=== PATIENT | female | born 1940 | race Caucasian/White ===

== ENCOUNTER 2017-02-07 13:55 | Inpatient (IN) | payer MEDICARE ==
[2017-02-07] MEDS ORDERED: Morphine 4 MG/ML VIAL ONE (15:29)
--- NOTE | 2017-02-07 15:31 | CT ---
CT BRAIN NONCONTRAST: HISTORY: 76-year-old female status post acute head trauma from fall. FINDINGS: There is no midline shift or any other mass effect. There is no evidence of acute intracranial hemor rhage, large cortical infarct, obstructive hydrocephalus, or extraaxial fluid collection. The calvar ium is intact. IMPRESSION: No acute intracranial findings. jerzy POS: HONEY
--- NOTE | 2017-02-07 15:36 | RAD ---
AP RADIOGRAPH OF THE PELVIS: DATE: 02/07/17. HISTORY: Trauma. Intense pain with rotation of upper portion of right lower extremity. Abrasion to right elb ow. Symptoms occurred post fall. COMPARISON: None available. FINDINGS: Mild degenerative changes are seen in the spine and involving the sacroiliac joints bilaterally. The re is symmetric but minimal bilateral hip osteoarthritis. There is a nondisplaced right intertrochan teric hip fracture. No additional fracture is seen, and there is no dislocation. Degenerative hernandez es are seen in the pubic symphysis. Surgical clips are seen inferior to the pelvis. IMPRESSION: Nondisplaced intertrochanteric right hip fracture. POS: VALERIE
--- NOTE | 2017-02-07 15:37 | RAD ---
TWO VIEWS OF THE RIGHT FEMUR: 02/07/17 HISTORY: Intense pain and rotation upper right lower extremity after a fall. FINDINGS: There is a nondisplaced intertrochanteric right hip fracture. No additional fracture seen. There is n o dislocation. Right total hip prosthesis is present. Surgical clips are seen at the medial aspect of the right thigh with vascular calcification in the region of the superficial femoral artery. IMPRESSION: Nondisplaced intertrochanteric right hip fracture. POS: VALERIE
--- NOTE | 2017-02-07 15:37 | RAD ---
TWO VIEWS RIGHT HIP: Date: 02-07-17 History: Patient fell, intense pain with rotation of upper portion right lower extremity. Abrasion ri ght elbow. FINDINGS: There is a nondisplaced intertrochanteric right hip fracture. There is no evidence of a dislocation. Surgical clips are seen in at the medial aspect of each thigh. Degenerative changes seen at the pubic symphysis. IMPRESSION: Nondisplaced intertrochanteric right hip fracture. POS: VALERIE
[2017-02-07 16:03] LABS: #Lymphocytes 1.3 thou/uL (1.20-3.40); #Monocytes 0.5 thou/uL (0.11-0.59); #Neutrophils 9.4 thou/uL (1.40-6.50); %Basophils 0.1 % (0.0-1.0); %Eosinophils 0.3 % (0.0-10.0); %Lymphocytes 11.4 % (21.0-51.0); %Monocytes 4.6 % (0.0-10.0); Hematocrit 42.5 % (36.0-47.0); Mean Platelet Volume 8.1 fL (7.4-10.4); Red Blood Cell (RBC) Count 4.87 mill/uL (4.20-5.40); White Blood Cell (WBC) Count 11.3 thou/uL (4.8-10.8)
[2017-02-07 16:10] LABS: Prothrombin Time 14.5 SEC (12.0-14.7)
[2017-02-07 16:11] LABS: PTT 30.2 SEC (22.9-36.1)
[2017-02-07 16:20] LABS: ALT (SGPT) 16 U/L (8-55); AST (SGOT) 21 U/L (5-34); Alkaline Phosphatase 103 U/L (40-150); Anion Gap 11 mmol/L (10-20); BUN (Urea Nitrogen) 16 mg/dL (9.8-20.1); Bilirubin, Total 0.6 mg/dL (0.2-1.2); Calc. Creatinine Clearance 0 mL/min (70-130); Carbon Dioxide 26 mmol/L (23-31); Chloride 102 mmol/L (98-107); Estimated GFR-MDRD 65; Globulin 3.1 g/dL (2.4-3.5); Protein, Total 6.7 g/dL (6.0-8.3)
--- NOTE | 2017-02-07 16:41 | RAD ---
RADIOGRAPH CHEST 1 VIEW: 02/07/17 HISTORY: 76-year-old female for preoperative clearance. FINDINGS: There are no air space densities, pulmonary edema, pneumothorax, or cardiomegaly. The lateral costop hrenic angles are sharp. There are sternotomy wires. There is no interval change since 05/28/15. IMPRESSION: 1. No acute cardiopulmonary findings. 2. Signs of previous open heart surgery. jerzy [] POS: Jarod
[2017-02-07 17:03] LABS: Bilirubin Negative (Negative); Blood, Urine Negative (Negative); Glucose, Urine (Dipstick) >=1000 mg/dL (Negative); Ketone, Urine Trace mg/dL (Negative); Nitrite Negative (Negative); Protein, Urine (Dipstick) Negative (Neg-Trace); Urobilinogen 0.2 mg/dL (0.2-1.0)
[2017-02-07] MEDS ORDERED: Ondansetron HCl/PF 4 MG/2 ML Vial IVP PRN (17:27)
[2017-02-07] MEDS ORDERED: Dextrose 50% Abboject 50 ML SYRINGE SLOW IVP PRN ×2 (17:27→20:58)
[2017-02-07] MEDS ORDERED: Dextrose 5% in Water 1,000 ML IV PRN ×2 (17:27→20:58)
[2017-02-07] MEDS ORDERED: hydrALAZINE 20 MG/ML VIAL SLOW IVP PRN (17:27)
[2017-02-07 17:51] VITALS: BMI 31.1
--- NOTE | 2017-02-07 18:28 | PRG ---
DATE OF SERVICE: 02/07/2017 The patient was seen by Faith Hernandez. Please see her H&P for details. Briefly this is a 76-year-old female who presents for hip fracture, admitted to the Trauma Service. The patient is hemodynamically and neurologically stable. Her head CT was negative. Her chest film s hows no obvious hemothorax, pneumothorax or infiltrates. Her lower extremity films reveal a right in tertrochanteric fracture. The patient is comfortable and her pain is controlled. ASSESSMENT: Right intertrochanteric hip fracture. PLAN: Dr. Gunter to see for repair of that. Trauma Service will follow.
[2017-02-07] MEDS: Morphine 4 MG/ML VIAL SLOW IVP PRN (20:13)
[2017-02-07] MEDS: Famotidine/PF 20 mg/2ml Vial SLOW IVP SCH (20:13)
[2017-02-07] MEDS ORDERED: CEFAZOLIN/Water 2 GM/20 ML SYRINGE SLOW IVP SCH (20:45)
[2017-02-07] MEDS: HumaLOG 300 UNITS/3 ML VIAL SC PRN (21:34)
--- NOTE | 2017-02-07 21:53 | HP ---
ATTENDING PHYSICIAN: Jaxson Farmer M.D. HISTORY OF PRESENT ILLNESS: A 76-year-old female presented to [facility] ED after a fall that occurred at 9:30 this morning. She was apparently trying to step over a space heater when her feet got tangled up and she fell to the ground , landing on her right knee and right upper leg. She was unable to get herself up into a seated position and called her grandson. They were unable to get her picked up into a chair without excruciating pain. EMS was summoned and she was transported to [facility]. She remained hemodynamically stable and neurologically intact en route. She complained of pain that is mostly in her right upper thigh and right hip area. Pain is dull in nature and aching. Symptoms are improved with administration of morphine. Pain is exacerbated by movement. Workup in the ED identified a right nondisplaced intertrochanteric hip fracture. Dr. Gunter, Orthopedics, was consulted by Dr. Fuentes in the ED. Trauma services has been consulted for admission and management. PAST MEDICAL HISTORY: Includes gastroesophageal reflux disease, coronary artery disease, diabetes mellitus, and hyperlipidemia. PAST SURGICAL HISTORY: Coronary artery bypass graft x3, right knee surgery, carpal tunnel release. SOCIAL HISTORY: Patient drinks socially rarely. The patient reports smoking cigarettes and quit in approximately 2014. She denies drug use. HOME MEDICATIONS: Aspirin 81mg daily, Metoprolol 50 mg daily, Simvastatin 40mg QHS, Losartan 50mg daily, Metformin 1000mg BID. REVIEW OF SYSTEMS: Constitutional: The patient denies chills, fever, weakness. HEENT: Patient denies complaint. Cardiovascular: Patient denies chest pain or palpitations. Pulmonary: The patient denies cough, shortness of breath. Gastrointestinal: The patient denies abdominal pain, nausea, vomiting or diarrhea. Musculoskeletal: The patient reports pain in the right upper thigh and right hip area. Integumentary: The patient denies complaints. Neurologic: Patient denies focal weakness or sensory issues. PHYSICAL EXAMINATION: VITAL SIGNS: Blood pressure 153/73, pulse 65, respirations 18, temperature 98.4 oral, O2 sat 96% on room air. HEENT: Atraumatic, normocephalic, trachea midline. No JVD. CARDIOVASCULAR: Regular rate and rhythm. Heart sounds normal. PULMONARY: Breath sounds clear bilaterally. No respiratory distress. ABDOMEN: Nontender, nondistended. EXTREMITIES: Moves all extremities. Cap refill brisk. Neurovascularly intact. Pain with palpation of the right upper femur, right hip area. NEUROLOGIC: GCS 15, awake, alert, oriented x3. PSYCHIATRIC: Normal mood and affect. ASSESSMENT: 1. A 76-year-old female status post ground level fall. 2. Nondisplaced intertrochanteric right hip fracture. PLAN: 1. Admit to hospital surgical floor. 2. Dr. Gunter, Orthopedics, consulted by TAMIKA Cunningham 3. Clear liquid diet tonight and n.p.o. after midnight. 4. IV fluids after midnight. 5. IV analgesia. 6. No chemical deep venous thrombosis prophylaxis. Place sequential compression devices. 7. Bed rest until cleared by orthopedics. Assessment, diagnostic imaging, plan of care were discussed with the patient and family. The patient understands and agrees with plan of care. History, review of system, assessment and plan were reviewed with attending trauma surgeon. HOLLIS
[2017-02-08] MEDS: HumaLOG 300 UNITS/3 ML VIAL SC PRN ×5 (00:20→20:56)
--- NOTE | 2017-02-08 01:58 | HP ---
PRINCIPAL DIAGNOSIS: Right intertrochanteric hip fracture. HISTORY OF PRESENT ILLNESS: This is a very pleasant woman who fell in her own home. She tripped ove r a space here. She denies injuries to her neck, nausea, vomiting, loss of consciousness. PAST MEDICAL HISTORY: Significant for hypertension, high cholesterol, and diabetes. ALLERGIES TO MEDICATIONS: None. SOCIAL HISTORY: Does not smoke or drink. She has a good family support system. FAMILY HISTORY: Negative for significant disease related to hip fractures. PHYSICAL EXAMINATION: GENERAL: Shows a pleasant woman who is in no distress. HEENT: Normocephalic, atraumatic. LUNGS: Clear. HEART: Regular. EXTREMITIES: Right hip shows mild shortening, no rotational deformity, intact. NEUROLOGIC: Pulses intact. Sensation intact. Motor function distally. IMAGING: Radiographs show nondisplaced-intertrochanteric hip fracture. PLAN: Intramedullary fixation. She understands the risk of infection, stiffness, nerve or blood ves nicole damage, blood clots, transfusion, , and would like to proceed with surgery.
[2017-02-08] MEDS: Morphine 4 MG/ML VIAL SLOW IVP PRN (05:31)
[2017-02-08 05:33] LABS: #Eosinphils 0.1 thou/uL (0.0-0.7); #Lymphocytes 1.3 thou/uL (1.20-3.40); #Monocytes 0.5 thou/uL (0.11-0.59); #Neutrophils 5.3 thou/uL (1.40-6.50); %Basophils 0.4 % (0.0-1.0); %Eosinophils 1.5 % (0.0-10.0); %Monocytes 6.9 % (0.0-10.0); Hematocrit 39.7 % (36.0-47.0); Mean Platelet Volume 8.4 fL (7.4-10.4); Red Blood Cell (RBC) Count 4.56 mill/uL (4.20-5.40); White Blood Cell (WBC) Count 7.2 thou/uL (4.8-10.8)
[2017-02-08 05:39] LABS: Anion Gap 9 mmol/L (10-20); BUN (Urea Nitrogen) 10 mg/dL (9.8-20.1); Calc. Creatinine Clearance 75 mL/min (70-130); Calcium 8.4 mg/dL (7.8-10.44); Carbon Dioxide 24 mmol/L (23-31); Chloride 100 mmol/L (98-107); Estimated GFR-MDRD 73
[2017-02-08] MEDS: Famotidine/PF 20 mg/2ml Vial SLOW IVP SCH ×2 (08:51→20:38)
[2017-02-08] MEDS ORDERED: Metoprolol Tartrate 25 MG TAB PO SCH (09:00)
[2017-02-08] MEDS: D5 1/2 NS w/20 mEq KCL 1,000 ML IV SCH ×2 (09:18)
[2017-02-08] MEDS ORDERED: CEFAZOLIN/Water 2 GM/20 ML SYRINGE ONE (09:40)
[2017-02-08] MEDS ORDERED: Ondansetron HCl/PF 4 MG/2 ML Vial IVP PRN ×2 (11:12→11:13)
[2017-02-08] MEDS ORDERED: Morphine Sulfate 2 MG/ML SYRINGE SLOW IVP PRN (11:12)
[2017-02-08] MEDS ORDERED: Promethazine HCl 25 MG/ML VIAL IM PRN (11:12)
[2017-02-08] MEDS ORDERED: Promethazine HCl 25 MG/ML VIAL SLOW IVP PRN (11:12)
[2017-02-08] MEDS ORDERED: Ondansetron ODT 4 MG TAB PO PRN (11:13)
[2017-02-08] MEDS ORDERED: Fentanyl 100 MCG/2 ML VIAL SLOW IVP PRN (11:13)
[2017-02-08] MEDS ORDERED: Milk Of Magnesia 30 ML UDCUP PO PRN (11:13)
[2017-02-08] MEDS ORDERED: Bisacodyl 10 MG SUPP PR PRN (11:13)
[2017-02-08] MEDS ORDERED: traMADol HCl 50 MG TAB PO PRN (11:13)
[2017-02-08] MEDS ORDERED: Fleet Enema 133 ML BOT PR PRN (11:13)
[2017-02-08] MEDS ORDERED: Cepastat Lozenges 1 LOZ PO PRN (11:13)
[2017-02-08] MEDS: Sodium Chloride 0.9% 1,000 ML IV SCH ×2 (12:31→20:37)
[2017-02-08] MEDS ORDERED: CEFAZOLIN 1 GM in Sodium Chloride 0.9% 100 ML IVPB SCH (14:00)
--- NOTE | 2017-02-08 14:00 | OP ---
PREOPERATIVE DIAGNOSIS: Intertrochanteric fracture of right hip. POSTOPERATIVE DIAGNOSIS: Intertrochanteric fracture of right hip. SURGEON: Toy Gunter M.D. WHITE SUGAR SYRUP OPERATOR: None. BLOOD LOSS: 100 mL. COMPLICATIONS: None. IMPLANTS USED: Synthes trochanteric femoral nail, short length, size 10. PROCEDURE IN DETAIL: After informed consent was obtained in the preoperative holding area, the patie nt was taken to the operative suite and positioned appropriately on the fracture table. Spinal anest hetic was placed and the right hip was then prepped and draped in the usual sterile fashion. Prior t o incision, a time-out was called and all members of surgical team agreed upon site, surgeon, and pat ient. Patient also received preoperative antibiotics prior to incision. Once this was confirmed, fl uoroscopy was brought into the field and we evaluated the reduction and the fracture table was used w ith inline longitudinal traction and adduction to appropriately reduce the fracture. Once we were alcaraz ppy with near anatomic reduction, we then made a linear incision 2 fingerbreadths above the greater t rochanter noted by palpation. The subcutaneous layers were opened sharply. I encountered the IT ban d. This was incised sharply and blunt dissection using a finger was then carried down to the trochant er which was noted by palpation. We used a guidepin to enter the posterior 2/[address] ter. Guidepin was then used to enter the canal, over reamed with a 15 mm entry reamer. Once this wa s established, the prosthesis was then slid down into place and malleted gently to the adequate heigh t and noted with fluoroscopy. The lateral entry outrigger was then placed and we used a 2-incision t echnique to establish the hip screw fixation point. A guidepin was then placed into the femoral head using the outrigger. The measurement was taken. The appropriate size was chosen. Lateral entry bro aching reamer was then used using the outrigger and the final screw was then placed. The anti-rotati onal gate was then closed and the distal interlocking screw was placed for final construct which appe ared near anatomic on radiographs. Both incisions (2-incision technique) were copiously irrigated wit h normal saline. Primary closure was accomplished with #1 Vicryl at the IT band. Subcutaneous layer was closed with 2-0 Vicryl, and stainless steel neetu were used to reapproximate the skin. Final x-rays demonstrated near anatomic reduction, good hardware fixation. The procedure was terminated wi thout any complications. The patient was taken recovery room in stable condition.
--- NOTE | 2017-02-08 14:54 | RAD ---
RADIOGRAPH RIGHT HIP 4 VIEWS: DATE: 02/08/17. Attention Lindsay in billing: this is indeed a 4 view study. HISTORY: A 76-year-old female with nondisplaced right intertrochanteric fracture. COMPARISON: 02/07/17. FINDINGS: Fluoroscopic spot images obtained with C-arm in the OR. A short intramedullary nail is being placed, with distal tip reaching the junction between the proximal and middle thirds of the femoral diaphysi s, with single distal stabilization screw being placed. Quintero-type dynamic compression screw comp onent is in the femoral neck and head. IMPRESSION: Ongoing Quintero-type dynamic compression screw with short intramedullary nail, fixating the acute ri ght intertrochanteric fracture. POS: VALERIE
[2017-02-08] MEDS ORDERED: Propofol 200 MG/20 ML VIAL ONE (15:31)
[2017-02-08] MEDS ORDERED: Ondansetron HCl/PF 4 MG/2 ML Vial ONE (15:31)
[2017-02-08] MEDS ORDERED: Lidocaine 1% PF 5 ML VIAL ONE (15:31)
[2017-02-08] MEDS ORDERED: Dexamethasone 20 MG/5 ML VIAL ONE (15:31)
[2017-02-08] MEDS ORDERED: Ketorolac Tromethamine 30 MG/ML VIAL ONE (15:31)
--- NOTE | 2017-02-08 17:16 | PRG ---
DATE OF SERVICE: 02/08/2017 ATTENDING PHYSICIAN: Darren Farmer MD SUBJECTIVE: The patient was admitted one day ago, status post ground level fall with right nondisplaced intertrochanteric hip fracture. She was admitted to the hospital by Trauma Services. Consult was made to Dr. Gunter, Orthopedics , who took the patient to OR this morning for ORIF of right hip fracture. She is now seen postoperatively on the surgical floor. OBJECTIVE: VITAL SIGNS: Temperature 97.9, pulse 66, respirations 18, O2 saturation 98% room air, blood pressure 148/75. CONSTITUTIONAL: Well-developed, well-nourished female in no acute distress. PULMONARY: Bilateral breath sounds clear. No respiratory distress. CARDIOVASCULAR: Regular rate and rhythm. ABDOMEN: Soft, nontender, nondistended. EXTREMITIES: Pain to right hip with movement. Dressing to right lateral hip and thigh clean, dry, and intact. Cap refill brisk. Neurovascularly intact. NEUROLOGIC: Awake, alert, oriented x3. PSYCHIATRIC: Normal mood and affect. ASSESSMENT: 1. A 76-year-old female status post ground level fall. 2. Right intertrochanteric hip fracture. 3. Status post open reduction and internal fixation of right hip fracture. PLAN: 1. Continue current care as ordered. 2. Begin physical therapy tomorrow. 3. Regular diet. 4. Oral analgesia with IV for breakthrough pain. 5. Resume home medications. History, ROS, physical exam, assessment, and plan were discussed with Dr. Farmer. [facility]
[2017-02-08] MEDS: CEFAZOLIN 1 GM, Syringe 2.5 ML in Sterile Water 7.5 ML SLOW IVP SCH (17:31)
[2017-02-08] MEDS ORDERED: Dextrose 5% in Water 1,000 ML IV PRN (20:35)
[2017-02-08] MEDS ORDERED: Dextrose 50% Abboject 50 ML SYRINGE SLOW IVP PRN (20:35)
[2017-02-08] MEDS: Ferrous Gluconate 324 MG TAB PO SCH (20:38)
[2017-02-08] MEDS: Senokot S 8.6-50 MG TAB PO SCH (20:38)
[2017-02-08] MEDS: traMADol HCl 50 MG TAB PO PRN (20:44)
[2017-02-08] MEDS ORDERED: Aspirin 325 MG TAB PO SCH (21:00)
[2017-02-09] MEDS: CEFAZOLIN 1 GM, Syringe 2.5 ML in Sterile Water 7.5 ML SLOW IVP SCH (01:59)
[2017-02-09 05:51] LABS: Hematocrit 37.8 % (36.0-47.0); Mean Platelet Volume 8.2 fL (7.4-10.4); White Blood Cell (WBC) Count 14.5 thou/uL (4.8-10.8)
[2017-02-09] MEDS: traMADol HCl 50 MG TAB PO PRN (06:14)
[2017-02-09] MEDS: HumaLOG 300 UNITS/3 ML VIAL SC PRN ×3 (06:15→17:53)
[2017-02-09] MEDS: Famotidine/PF 20 mg/2ml Vial SLOW IVP SCH ×2 (09:32→21:43)
[2017-02-09] MEDS: Losartan Potassium 25 MG TAB PO SCH (09:32)
[2017-02-09] MEDS: Multivitamin W/ Minerals 1 TAB PO SCH (09:32)
[2017-02-09] MEDS: Senokot S 8.6-50 MG TAB PO SCH ×2 (09:33→21:47)
[2017-02-09] MEDS: Ferrous Gluconate 324 MG TAB PO SCH ×2 (09:33→21:47)
[2017-02-09] MEDS: metFORMIN 500 MG TAB PO SCH ×2 (09:33→17:52)
[2017-02-09] MEDS: Enoxaparin Sodium 40 MG/0.4 ML SYRINGE SC SCH ×2 (09:33→21:41)
--- NOTE | 2017-02-09 16:05 | PRG ---
DATE OF SERVICE: 02/09/2017 ATTENDING PHYSICIAN: Dr. Jaxson Farmer. SUBJECTIVE: The patient is postoperative day #1 status post open reduction internal fixation of right hip fracture. She has been stable on the surgical floor. She has begun to mobilize with physical and occupational therapy. Pain is well controlled. OBJECTIVE: VITAL SIGNS: Temperature 97.6, pulse 65, respirations 20, O2 sat 95% on room air, blood pressure 115/61. CONSTITUTIONAL: Well-developed, well-nourished female in no acute distress. PULMONARY: Bilateral breath sounds clear to auscultation. No respiratory distress. CARDIOVASCULAR: Regular rate and rhythm. ABDOMEN: Soft, nontender, nondistended. EXTREMITIES: Moves all extremities. Cap refill brisk. Neurovascular intact in all extremities. Surgical dressing in place, right hip clean, dry, and intact. NEUROLOGIC: Awake, alert, and oriented x3. PSYCHIATRIC: Normal mood and affect. ASSESSMENT: 1. A 76-year-old female status post ground-level fall. 2. Right intertrochanteric hip fracture. 3. Status post open reduction internal fixation of right hip fracture. PLAN: 1. Continue current care as ordered. 2. Lovenox for DVT prophylaxis. 3. Oral analgesia. 4. Physical and occupational therapy. 5. Home meds restarted. Continue to monitor blood glucose. Continue sliding scale insulin. 6. Case management consult for discharge planning. 7. Discontinue Funes catheter. The patient's history, review of systems, physical exam, assessment and plan was reviewed with Dr. Farmer. HOLLIS
[2017-02-09] MEDS: Sodium Chloride 0.9% 1,000 ML IV SCH (17:48)
[2017-02-10] MEDS: HYDROcodone/Acetaminophen 5/325 mg Tablet PO PRN ×2 (03:53→10:00)
[2017-02-10 04:35] LABS: Hematocrit 37.9 % (36.0-47.0); Mean Platelet Volume 8.9 fL (7.4-10.4); Red Blood Cell (RBC) Count 4.29 mill/uL (4.20-5.40); White Blood Cell (WBC) Count 9.7 thou/uL (4.8-10.8)
[2017-02-10] MEDS: HumaLOG 300 UNITS/3 ML VIAL SC PRN ×3 (06:46→21:43)
[2017-02-10] MEDS ORDERED: Senokot 8.6 MG TAB PO SCH (09:00)
[2017-02-10] MEDS: metFORMIN 500 MG TAB PO SCH ×2 (09:59→17:45)
[2017-02-10] MEDS: Docusate 100 MG CAP PO SCH (10:00)
[2017-02-10] MEDS: Multivitamin W/ Minerals 1 TAB PO SCH (10:00)
[2017-02-10] MEDS: Losartan Potassium 25 MG TAB PO SCH (10:00)
[2017-02-10] MEDS: Senokot S 8.6-50 MG TAB PO SCH ×2 (10:00→21:22)
[2017-02-10] MEDS: Ferrous Gluconate 324 MG TAB PO SCH ×2 (10:00→21:22)
[2017-02-10] MEDS: Enoxaparin Sodium 40 MG/0.4 ML SYRINGE SC SCH ×2 (10:00→21:21)
[2017-02-10] MEDS: Famotidine/PF 20 mg/2ml Vial SLOW IVP SCH ×2 (10:01→21:23)
[2017-02-10] MEDS ORDERED: Acetaminophen 500 MG TAB PO PRN (11:39)
[2017-02-10] MEDS ORDERED: traMADol HCl 50 MG TAB PO PRN (11:40)
[2017-02-10] MEDS: traMADol HCl 50 MG TAB PO SCH ×3 (12:44→23:27)
--- NOTE | 2017-02-10 14:06 | PRG-2 ---
DATE OF SERVICE: 02/10/2017 ATTENDING PHYSICIAN: Dr. Yared Wilson. SUBJECTIVE: Ms. Joellen Phan is a 76-year-old woman postoperative day #2 status post open reduction internal fixation of right hip fracture. She has remained stable on the surgical floor and has evelina nued to mobilize with PT and OT and her pain has been well controlled. OBJECTIVE: VITAL SIGNS: Temperature 98.4, pulse 60, respiratory rate 16, O2 sat 93% on room air, blood pressure 135/68. GENERAL: Well-developed, well-nourished female, in no acute distress. PULMONARY: Lungs clear to auscultation bilaterally. No respiratory distress. CARDIOVASCULAR: Regular rate and rhythm. No murmurs or gallops. ABDOMEN: Soft, nontender, nondistended. EXTREMITIES: Full range of motion. Neurovascularly intact x4. Surgical dressing in place. Right hip is clean, dry, and intact. NEUROLOGIC: Awake, alert and oriented x3. ASSESSMENT: 1. A 76-year-old female status post ground level fall. 2. Right intertrochanteric hip fracture. 3. Status post open reduction internal fixation of right hip. PLAN: 1. Continue care as ordered. 2. Lovenox for deep venous thrombosis prophylaxis. 3. P.O. pain management. 4. Continue physical therapy and occupational therapy. 5. Increase metformin to 1000 b.i.d. to decrease dependence on sliding scale insulin, continue to mo nitor blood sugars. Assessment and plan discussed with attending, trauma surgeon, Dr. Yared Wilson on rounds this vanessa parsons
[2017-02-11 04:43] LABS: Hematocrit 38.7 % (36.0-47.0); Mean Platelet Volume 8.2 fL (7.4-10.4); Red Blood Cell (RBC) Count 4.36 mill/uL (4.20-5.40); White Blood Cell (WBC) Count 6.8 thou/uL (4.8-10.8)
[2017-02-11] MEDS: traMADol HCl 50 MG TAB PO SCH ×3 (06:32→17:54)
[2017-02-11 07:22] LABS: Anion Gap 12 mmol/L (10-20); BUN (Urea Nitrogen) 16 mg/dL (9.8-20.1); Calc. Creatinine Clearance 77 mL/min (70-130); Carbon Dioxide 26 mmol/L (23-31); Chloride 100 mmol/L (98-107); Estimated GFR-MDRD 75
[2017-02-11] MEDS: Senokot S 8.6-50 MG TAB PO SCH ×2 (08:32→21:07)
[2017-02-11] MEDS: Ferrous Gluconate 324 MG TAB PO SCH ×2 (08:33→21:07)
[2017-02-11] MEDS: Losartan Potassium 25 MG TAB PO SCH (08:33)
[2017-02-11] MEDS: Famotidine/PF 20 mg/2ml Vial SLOW IVP SCH ×2 (08:33→21:07)
[2017-02-11] MEDS: Docusate 100 MG CAP PO SCH (08:33)
[2017-02-11] MEDS: Multivitamin W/ Minerals 1 TAB PO SCH (08:33)
[2017-02-11] MEDS: metFORMIN 500 MG TAB PO SCH ×2 (08:33→17:55)
[2017-02-11] MEDS: Enoxaparin Sodium 40 MG/0.4 ML SYRINGE SC SCH ×2 (08:34→21:07)
--- NOTE | 2017-02-11 11:34 | PRG-2 ---
DATE OF SERVICE: 02/11/2017 ATTENDING TRAUMA SURGEON: Yared Wilson D.O. SUBJECTIVE: Ms. Joellen Phan is a 76-year-old woman, postoperative day #3, status post open reductio n internal fixation of right hip fracture. She has remained stable on surgical floor and has continu ed to mobilize with PT and OT. There were no acute events overnight. The patient states that her pa in is well controlled. OBJECTIVE: VITAL SIGNS: Temperature 99.0, pulse 64, respiratory rate 22, O2 sat 95%, blood pressure 133/68. GENERAL: Well-developed, well-nourished female, in no acute distress. PULMONARY: Clear to auscultation bilaterally. No respiratory distress. CARDIOVASCULAR: Regular rate and rhythm. No murmurs or gallops. ABDOMEN: Soft, nontender. EXTREMITIES: Full range of motion. Neurovascularly intact x4. NEUROLOGIC: Awake, alert, and oriented x3. ASSESSMENT: 1. A 76-year-old woman status post ground-level fall. 2. Right intertrochanteric hip fracture. 3. Status post open reduction internal fixation of the right hip. PLAN: Continue care as ordered. Lovenox for deep venous thrombosis prophylaxis. Continue p.o. pain management. Continue PT/OT. Case management is currently involved with discharge planning. The pa katty decided that she does not want inpatient rehab and prefers home health. Assessment and plan discussed with the attending trauma surgeon, Dr. Yared Wilson on rounds this angely mercadog.
[2017-02-11] MEDS: HumaLOG 300 UNITS/3 ML VIAL SC PRN ×2 (11:54→21:12)
[2017-02-12] MEDS: traMADol HCl 50 MG TAB PO SCH ×4 (00:56→17:58)
[2017-02-12] MEDS: metFORMIN 500 MG TAB PO SCH ×2 (08:08→17:58)
[2017-02-12] MEDS: Docusate 100 MG CAP PO SCH (08:09)
[2017-02-12] MEDS: Losartan Potassium 25 MG TAB PO SCH (08:09)
[2017-02-12] MEDS: Ferrous Gluconate 324 MG TAB PO SCH ×2 (08:10→21:09)
[2017-02-12] MEDS: Senokot S 8.6-50 MG TAB PO SCH ×2 (08:10→21:08)
[2017-02-12] MEDS: Multivitamin W/ Minerals 1 TAB PO SCH (08:10)
[2017-02-12] MEDS: Enoxaparin Sodium 40 MG/0.4 ML SYRINGE SC SCH ×2 (08:11→21:09)
[2017-02-12] MEDS: Famotidine/PF 20 mg/2ml Vial SLOW IVP SCH ×2 (08:11→21:09)
[2017-02-12] MEDS: Bisacodyl 5 MG TAB PO SCH (09:54)
[2017-02-12] MEDS: HumaLOG 300 UNITS/3 ML VIAL SC PRN ×2 (12:57→21:14)
--- NOTE | 2017-02-12 16:03 | PRG ---
DATE OF SERVICE: 02/12/2017 SUBJECTIVE: The patient is hospital day #4 status post ORIF of her right hip fracture. The patient originally was planned to be discharged home with home health today, but after discussion with grands on, he convinced her that she would be best served by going to rehab, which is what the plan now has become. The patient was ready for discharge this morning. She had no complaints or issues overnight . Her pain is controlled. She is tolerating a diet. PHYSICAL EXAMINATION: GENERAL: Patient is alert and oriented x3. Jackson coma scale is 15. She is sitting on the side of bed and appropriate. VITAL SIGNS: Temperature 98.4, heart rate 63, blood pressure 116/69, respirations 12, oxygen saturat ion 95% on room air. HEENT: Unremarkable. LUNGS: Clear to auscultation bilaterally. HEART: Regular rate and rhythm. ABDOMEN: Soft, flat, nontender with active bowel sounds. EXTREMITIES: Neurovascularly intact x4 LABORATORY DATA: There are no labs or radiographs to review this morning. ASSESSMENT: 1. Status post ground level fall. 2. Right hip fractures status post open reduction internal fixation of same. PLAN: Will be to continue physical and occupational therapy, pain control and await placement. The egg caser have asked for an expedited approval since the patient is currently ready for discharge to a rehab facility. The evaluation examination was done with Dr. Wilson during rounds this morning.
[2017-02-13] MEDS: traMADol HCl 50 MG TAB PO SCH ×4 (00:42→17:56)
[2017-02-13] MEDS: Bisacodyl 5 MG TAB PO SCH (09:01)
[2017-02-13] MEDS: Docusate 100 MG CAP PO SCH (09:01)
[2017-02-13] MEDS: metFORMIN 500 MG TAB PO SCH ×2 (09:01→17:56)
[2017-02-13] MEDS: Famotidine/PF 20 mg/2ml Vial SLOW IVP SCH (09:02)
[2017-02-13] MEDS: Enoxaparin Sodium 40 MG/0.4 ML SYRINGE SC SCH ×2 (09:02→21:28)
[2017-02-13] MEDS: Ferrous Gluconate 324 MG TAB PO SCH ×2 (09:02→21:28)
[2017-02-13] MEDS: Multivitamin W/ Minerals 1 TAB PO SCH (09:03)
[2017-02-13] MEDS: Losartan Potassium 25 MG TAB PO SCH (09:03)
[2017-02-13] MEDS: Senokot S 8.6-50 MG TAB PO SCH ×2 (09:04→21:28)
[2017-02-13] MEDS: HYDROcodone/Acetaminophen 5/325 mg Tablet PO PRN (09:16)
[2017-02-13] MEDS: HumaLOG 300 UNITS/3 ML VIAL SC PRN (11:49)
--- NOTE | 2017-02-13 13:03 | PRG ---
DATE OF SERVICE: 02/13/2017 SUBJECTIVE: The patient is hospital day #5 status post ORIF of her right hip fracture. The patient was released, supposed to go home with home health, but after discussion with family members, it was decided it was best for the patient to go to rehab so she is currently awaiting approval for rehab pl acement. Overnight she had no issues. This morning she is working with physical therapy while we sa w her during rounds. She was out of bed, ambulating with her walker. Once back, we were able to con firm that she is tolerating a diet and her pain is controlled. PHYSICAL EXAMINATION: VITAL SIGNS: Temperature 98.2, heart rate 60, blood pressure 129/74, respirations 14, oxygen saturat ion is 96% on room air. GENERAL: The patient is alert and oriented. Ritu coma scale was 15. HEENT: Unremarkable. LUNGS: Clear to auscultation with good inspiratory and expiratory effort. ABDOMEN: Soft, flat, nontender. HEART: Regular rate and rhythm. EXTREMITIES: Neurovascularly intact x4. Postop dressing is clean, dry, and intact. LABORATORY DATA: There were no labs or radiographs to review this morning. ASSESSMENT AND PLAN: 1. Status post ground level fall. 2. Right hip fracture status post open reduction internal fixation of same. PLAN: The plan will be to continue physical and occupational therapy, pain control and await decisio n for placement. The evaluation and examination was done with Dr. Wilson during rounds this morning.
[2017-02-13] MEDS: Famotidine 20 MG TAB PO SCH (21:28)
[2017-02-14] MEDS: traMADol HCl 50 MG TAB PO SCH ×5 (00:16→23:40)
[2017-02-14] MEDS: HYDROcodone/Acetaminophen 5/325 mg Tablet PO PRN (08:34)
[2017-02-14] MEDS: Ferrous Gluconate 324 MG TAB PO SCH ×2 (08:34→22:53)
[2017-02-14] MEDS: Losartan Potassium 25 MG TAB PO SCH (08:34)
[2017-02-14] MEDS: Famotidine 20 MG TAB PO SCH ×2 (08:34→22:52)
[2017-02-14] MEDS: metFORMIN 500 MG TAB PO SCH ×2 (08:34→17:06)
[2017-02-14] MEDS: Multivitamin W/ Minerals 1 TAB PO SCH (08:34)
[2017-02-14] MEDS: Enoxaparin Sodium 40 MG/0.4 ML SYRINGE SC SCH ×2 (08:35→22:53)
[2017-02-14] MEDS: Bisacodyl 5 MG TAB PO SCH (08:38)
[2017-02-14] MEDS: Docusate 100 MG CAP PO SCH (08:39)
[2017-02-14] MEDS: Senokot S 8.6-50 MG TAB PO SCH ×2 (08:39→22:53)
[2017-02-14] MEDS: HumaLOG 300 UNITS/3 ML VIAL SC PRN (11:23)
--- NOTE | 2017-02-14 21:32 | DIS ---
DATE OF ADMISSION: 02/07/2017. DATE OF DISCHARGE: 02/14/2017. ADMISSION DIAGNOSES: 1. Status post ground-level fall. 2. Nondisplaced intertrochanteric right hip fracture. CONSULTATION: Orthopedics, Dr. Gunter. PROCEDURES: Open reduction and internal fixation of right intertrochanteric hip fracture. HOSPITAL SUMMARY: The patient is a 76-year-old woman who was walking at her home when she slipped an d fell onto her right hip. She was brought to the Emergency Department, evaluated, examined and note d to have the above injuries. The patient will be stable and was able to be taken to the operating r oom the next day. The patient tolerated this procedure well and over the next several days, will be working with physical and occupational therapy. The patient had progressed enough that her insurance denied rehab placement at which time it was decided that the patient would go home with home health physical therapy to continue her rehabilitation. The family was agreeable to this. At time of disch arge, the patient was ambulating 180 feet with her walker. Her pain was controlled. She was tolerat ing a diet and her bowel function had returned. The patient will follow up with Dr. Gunter in 14 day s or sooner as needed. The patient may follow up with the trauma clinic as needed.
[2017-02-15 06:10] VITALS: TEMP 98.4
[2017-02-15] MEDS: traMADol HCl 50 MG TAB PO SCH ×2 (06:30→12:05)
[2017-02-15] MEDS: metFORMIN 500 MG TAB PO SCH (09:10)
[2017-02-15] MEDS: Famotidine 20 MG TAB PO SCH (09:11)
[2017-02-15] MEDS: Enoxaparin Sodium 40 MG/0.4 ML SYRINGE SC SCH (09:11)
[2017-02-15] MEDS: Ferrous Gluconate 324 MG TAB PO SCH (09:11)
[2017-02-15] MEDS: Losartan Potassium 25 MG TAB PO SCH (09:11)
[2017-02-15] MEDS: Multivitamin W/ Minerals 1 TAB PO SCH (09:11)
[2017-02-15] MEDS: Docusate 100 MG CAP PO SCH (09:12)
[2017-02-15] MEDS: Bisacodyl 5 MG TAB PO SCH (09:12)
[2017-02-15] MEDS: Senokot S 8.6-50 MG TAB PO SCH (09:12)
[2017-02-15 12:21] VITALS: BP 119/77
== END 2017-02-15 13:20 | disposition home health service (06) | DRG 482 ==
LOC: ERS 13:55 → SURG B 17:17
PROVIDERS: ADMIT Surgery; ATTEND Surgery
PROC: 0QS604Z Reposition Right Upper Femur with Internal Fixation Device, Open Approach (ICD-10-PCS; principal; 2017-02-08)
DX: S72.144A Nondisplaced intertrochanteric fracture of right femur, initial encounter for closed fracture (principal); E11.9 Type 2 diabetes mellitus without complications; I10 Essential (primary) hypertension; W01.0XXA Fall on same level from slipping, tripping and stumbling without subsequent striking against object, initial encounter; I25.10 Atherosclerotic heart disease of native coronary artery without angina pectoris; Z95.1 Presence of aortocoronary bypass graft; Z79.84 Long term (current) use of oral hypoglycemic drugs; K21.9 Gastro-esophageal reflux disease without esophagitis; E78.5 Hyperlipidemia, unspecified; S50.311A Abrasion of right elbow, initial encounter; Z96.651 Presence of right artificial knee joint
CPT/HCPCS: 36415; 36416; 51702; 70450; 71010; 72170; 76001; 80048; 80053; 81003; 85025; 85027; 85610; 85730; 86850; 86900; 86901; 93005; 93010; 96361; 96374; A4216; C1713; G8978-GP-CL; G8979-GP-CJ; G8987-GO-CK; G8988-GO-CI; J0690; J1100; J1170; J1650; J1885; J2001; J2270; J2405; J2704; S0028